=== PATIENT | female | born 2000 | race Caucasian/White ===

== ENCOUNTER → 2019-09-07 11:49 | Outpatient (CLI) | payer OTHER, SELFPAY ==
[2019-09-07 12:35] LABS: Influenza A - CEPHEID Flu A NEGATIVE (NEGATIVE); Influenza B - CEPHEID Flu B POSITIVE (NEGATIVE)
== END ==
PROVIDERS: Visit Provider Physician Assistant
DX: J02.9 Acute pharyngitis, unspecified (principal)
CPT/HCPCS: 87070; 87147; 87502